=== PATIENT | female | born 1995 | race Caucasian/White ===

== ENCOUNTER 2017-12-17 00:32 | Emergency (ER) | payer SELFPAY ==
[2017-12-17] MEDS ORDERED: DECADRON ONE (01:35)
[2017-12-17] MEDS ORDERED: BENADRYL PO ONE ×2 (01:35→02:02)
[2017-12-17] MEDS ORDERED: PEPCID ONE (01:36)
[2017-12-17 01:57] VITALS: BP 124/75
[2017-12-17] MEDS ORDERED: DECADRON IM ONE (02:02)
[2017-12-17] MEDS ORDERED: PEPCID PO ONE (02:03)
== END 2017-12-17 08:39 | disposition left against medical advice (07) ==
LOC: ED 00:32
DX: T78.40XA Allergy, unspecified, initial encounter (principal); Z53.21 Procedure and treatment not carried out due to patient leaving prior to being seen by health care provider
CPT/HCPCS: J1100